=== PATIENT | female | born 1995 | race Caucasian/White ===

== ENCOUNTER 2017-01-04 18:06 | Emergency (ER) | payer OTHER ==
[2017-01-04] MEDS ORDERED: ACETAMINOPHEN 325 MG TAB As Ordered ONE (19:13)
--- NOTE | 2017-01-04 19:29 | REP ---
Clinical: Trauma . Comparison: None . Findings: The ventricles, sulci, and cisterns are normal in position and appearance. Hoyt-white differentiation is maintained. No acute intracranial hemorrhage, mass/mass effect, pathology or trauma/injury. No evidence for acute infarction. No extra-axial fluid collection. Calvarium is intact. Paranasal sinuses and mastoid air cells are clear. Impression: Normal noncontrast head CT. No evidence for acute intracranial pathology or trauma/injury. Signed by Giovanni Brown MD 01/04/2017 07:21 P
--- NOTE | 2017-01-04 19:30 | REP ---
Clinical: Trauma. Technique: Axial noncontrast images through the facial bones to include the mandible with coronal and sagittal re-formations. Findings: The osseous structures are intact and there is no evidence for fracture or dislocation. Specifically, the bilateral zygomatic arches, nasal bones, and mandible including bilateral temporomandibular joints appear normal and symmetric. The sinuses and mastoid air cells are all well aerated and clear without fluid level to suggest occult trauma. The bilateral orbits including the globes and intraconal contents appear symmetric and normal. The surrounding soft tissues are grossly unremarkable. Impression: Normal maxillofacial CT. No evidence for acute pathology or trauma/injury. Signed by Giovanni Brown MD 01/04/2017 07:22 P
--- NOTE | 2017-01-04 20:28 | EDDOCDS ---
Physician Documentation [facility] Name: Anand Huitron Age: 21 yrs Sex: Female : 1995 Arrival Date: 01/04/2017 Time: 18:06 Bed I1 Private MD: NO PRIMARY PHYSICIAN, . Disposition: 01/04/17 20:12 Discharged to Home/Self Care. Impression: Abrasion of unspecified part of head - Face, Superficial injury of head, Contusion of other part of head - Left side of face. - Condition is Stable. - Discharge Instructions: Contusion, Idgu-mu-Gkil, Abrasion, Anhf-lo-Caff, Head Injury, Adult, Juze-rj-Gvda. - Prescriptions for Ibuprofen 800 mg Oral Tablet - take 1 tablet by ORAL route every 8 hours As needed take with food; 30 tablet. ZOFRAN ODT 4 mg - dissolve 1 tablet by ORAL route 4 times per day As needed do not chew, do not swallow whole; 10 tablet. - Medication Reconciliation, Local Pharmacy Hours, Referral List Call for Appointment, Work Release Form - 2 day form. - [facility] ; When: 1 - 2 days; Reason: Recheck today's complaints, Continuance of care. Follow up: Emergency Department; Reason: Worsening of conditions. - Problem is new. - Symptoms have improved. Historical: - Allergies: PENICILLINS (Hives); - Home Meds: 1. Ortho-Novum (28) 0.5/0.75/1 mg- 35 mcg oral tab 1 tab once daily (Last dose: 01/04/2017 12:00) - PMHx: none; - PSHx: Tonsillectomy; Adenoidectomy; - Social history: Smoking status: Patient states was never smoker of tobacco. No barriers to communication noted, The patient speaks fluent French. - Family history: No immediate family members are acutely ill. - : The pt / caregiver states he / she is not on anticoagulants. Home medication list is obtained from the patient. - Exposure Risk Screening:: None identified. 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 0 in. (152.40 cm) (R); Pain 4/10; 20:25 BP 110 / 70; Pulse 79; Resp 18; Temp 99.0(O); Pulse Ox 97% on R/A; Pain 5/10; nn1 18:07 Body Mass Index 31.05 (72.12 kg, 152.40 cm) gr2 Visual Acuity: 19:23 Left Eye Visual acuity 20/25, ; Right Eye Visual acuity 20/20, ; Both Eyes Visual dsf acuity 20/20; With Lenses; MDM: 18:58 Financial registration complete. kf3 19:03 Ice Pack ordered. ef1 19:03 Acetaminophen Tablet 975 mg PO once ordered. ef1 19:04 Visual Acuity ordered. ef1 19:04 CT Maxilofacial W/out Contrast Ordered. EDMS 19:04 CT Head Without Contrast Ordered. EDMS 19:06 [facility] [place] Payment Agreement was scanned into [employer] and attached to record. kf3 Administered Medications: 19:23 Drug: Acetaminophen 975 mg [acetaminophen 325 mg tablet (3 tabs)] Route: PO; nn1 Signatures: Dispatcher [employer] EDMS Sydnie Millard RN RN kpj Shaq Mcgowan, Reg Reg kf3 Payton Marsh PA-C PANicole ef1 George Rivera,RN RN nn1 The chart was reviewed and I authenticate all verbal orders and agree with the evaluation and treatment provided.Attachments: 19:06 [facility] Payment Agreement kf3 MTDD
--- NOTE | 2017-01-04 20:28 | EDDOCDS ---
Nurse's Notes [facility] Name: Anand Huitron Age: 21 yrs Sex: Female : 1995 Arrival Date: 01/04/2017 Time: 18:06 Bed I1 Private MD: NO PRIMARY PHYSICIAN, . 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 denies loc happened at 1615. Mechanism of Injury: direct blow to outer aspect left eye .scientology area. The patient denies any loss of vision. Adult Sepsis Screening: The patient does not have new or worsening altered mentation. Patient's respiratory rate is less than 22. Systolic blood pressure is greater than 100. Patient has a qSOFA score of 0- Negative Sepsis Screen. Suicide/Homicide risk assessment- the patient denies having any suicidal and/or homicidal ideations and does not present with any other emotional, behavioral or mental health complaints. 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 Transition of care: patient was not received from another setting of care. 18:23 Acuity: VINICIO Level 4 [facility] 18:23 Method Of Arrival: Walkin/Carried/Asstd [facility] Triage Assessment: 18:27 General: Appears in no apparent distress, Behavior is appropriate for age. Pain: [facility] Location: left scientology Pain currently is 7 out of 10 on a pain scale. Pt Declines HIV testing. Neurological: Level of Consciousness is awake, alert, Oriented to person, place, time. EENT: raised bruised area left upper outer eyelid near scientology. Respiratory: Airway is patent Respiratory effort is even, unlabored. Derm: Skin is pink, warm & dry. 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 Ortho-Novum (28) 0.5/0.75/1 mg- 35 mcg oral tab 1 tab once daily (Last dose: 01/04/2017 12:00) - PMHx: none; - PSHx: Tonsillectomy; Adenoidectomy; - Social history: Smoking status: Patient states was never smoker of tobacco. No barriers to communication noted, The patient speaks fluent Egyptian. - Family history: No immediate family members are acutely ill. - : The pt / caregiver states he / she is not on anticoagulants. Home medication list is obtained from the patient. - Exposure Risk Screening:: None identified. Screenin:25 Screening information is obtained from the patient. Fall risk: No risks identified. nn1 Assistance ADL's: requires no assistance with activities of daily living. Abuse/DV Screen: The patient / caregiver reports he/she is: not in a situation that causes fear, pain or injury. Nutritional screening: No deficits noted. Advance Directives: Currently, there is no health care proxy. home support is adequate. Assessment: 19:23 General: Appears in no apparent distress, Behavior is appropriate for age, cooperative. nn1 Neurological: Level of Consciousness is awake, alert, obeys commands, Oriented to person, place, time. EENT: Eyes No foreign bodies or discharge noted. . Sclera/Cornea are clear in right eye and left eye Reports blurred vision in left eye Blurry vision and "seeing spots" in left eye following injury to left scientology earlier today. Bruising noted to left scientology. . Respiratory: Airway is patent Respiratory effort is even, unlabored, Respiratory pattern is regular, symmetrical. Derm: Skin is pink, warm & dry. 20:26 General: Appears in no apparent distress, comfortable, Behavior is appropriate for age, nn1 cooperative. Neurological: Level of Consciousness is awake, alert, obeys commands, Oriented to person, place, time. Respiratory: Airway is patent Respiratory effort is even, Respiratory pattern is regular. Derm: Skin is pink, warm & dry. Vital Signs: 18:07 BP 127 / 84; Pulse 97; Resp 18 S; Temp 98.5(O); Pulse Ox 97% on R/A; Weight 72.12 kg gr2 (R); Height 5 ft. 0 in. (152.40 cm) (R); Pain 4/10; 20:25 BP 110 / 70; Pulse 79; Resp 18; Temp 99.0(O); Pulse Ox 97% on R/A; Pain 5/10; nn1 18:07 Body Mass Index 31.05 (72.12 kg, 152.40 cm) gr2 Vitals: 18:07 Log In Time: January 04, 2017 at 18:07. gr2 Visual Acuity: 19:23 Left Eye Visual acuity 20/25, ; Right Eye Visual acuity 20/20, ; Both Eyes Visual dsf acuity 20/20; With Lenses; ED Course: 18:07 Patient visited by Eden Cobb. gr2 18:07 NO PRIMARY PHYSICIAN, . is Private Physician. gr2 18:07 Patient moved to Waiting gr2 18:09 Patient visited by Eden Cobb. gr2 18:10 Patient moved to Pre RCE gr2 18:26 Triage Initiated kpj 18:37 Patient moved to Triage 3 srm 18:52 Payton Marsh PA-C is PHCP. ef1 18:52 James Last MD is Attending Physician. ef1 18:52 Patient visited by Payton Marsh PA-C. ef1 19:06 Patient name changed from Anand\\S\\\\S\\Huitron\\S\\ to Anand\\S\\ \\S\\Huitron. EDMS 19:06 Patient moved to I10 23 rs6 19:06 [facility] Payment Agreement was scanned into [employer] and attached to record. kf3 19:23 Patient visited by Payton Marsh PA-C. ef1 19:44 Patient visited by Payton Marsh PA-C. ef1 19:44 CT Head Without Contrast Returned. EDMS 19:44 CT Maxilofacial W/out Contrast Returned. EDMS 20:12 Patient visited by Payton Marsh PA-C. ef1 20:12 [facility] is Referral Physician. ef1 20:23 Patient visited by Payton Marsh PA-C. ef1 20:25 Patient visited by George Rivera RN. nn1 20:27 The patient / caregiver is instructed regarding the plan of care and ED course. nn1 20:27 No IV's were initiated during this patient's visit. No procedures done that require nn1 assistance. Administered Medications: 19:23 Drug: Acetaminophen 975 mg [acetaminophen 325 mg tablet (3 tabs)] Route: PO; nn1 Order Results: Radiology Order: CT Maxilofacial W/out Contrast Test: CT Maxilofacial W/out Contrast REASON FOR EXAMINATION: Trauma; Clinical: Trauma.; ; Technique: Axial noncontrast images through the facial bones to include the; mandible with coronal and sagittal re-formations.; ; Findings:; The osseous structures are intact and there is no evidence for fracture or; dislocation. Specifically, the bilateral zygomatic arches, nasal bones, and; mandible including bilateral temporomandibular joints appear normal and; symmetric. The sinuses and mastoid air cells are all well aerated and clear; without fluid level to suggest occult trauma. The bilateral orbits including the; globes and intraconal contents appear symmetric and normal. The surrounding soft; tissues are grossly unremarkable.; ; Impression:; Normal maxillofacial CT.; No evidence for acute pathology or trauma/injury.; ; ; Signed by; Giovanni Brown MD 01/04/2017 07:22 P; Radiology Order: CT Head Without Contrast Test: CT Head Without Contrast REASON FOR EXAMINATION: Trauma; Clinical: Trauma .; ; Comparison: None .; ; Findings:; The ventricles, sulci, and cisterns are normal in position and appearance.; Hoyt-white differentiation is maintained. No acute intracranial hemorrhage,; mass/mass effect, pathology or trauma/injury. No evidence for acute infarction.; No extra-axial fluid collection. Calvarium is intact. Paranasal sinuses and; mastoid air cells are clear.; ; Impression:; Normal noncontrast head CT.; No evidence for acute intracranial pathology or trauma/injury.; ; ; Signed by; Giovanni Brown MD 01/04/2017 07:21 P; Outcome: 20:12 Discharge ordered by Provider. ef1 20:26 Discharge Assessment: Patient awake, alert and oriented x 3. No cognitive and/or nn1 functional deficits noted. Patient verbalized understanding of disposition instructions. patient administered narcotics - no. The following High Risk Discharge criteria are identified: None. Discharged to home ambulatory. Condition: stable. Prescriptions given X 2, Work note provided to patient. CT Study completed. Property :Personal belongings accompany Pt. 20:27 Patient left the ED. nn1 Signatures: Dispatcher [employer] EDMS Sydnie Millard RN RN kpj Michelson, Staci, RN RN srm Fiddler, Shaq, Reg Reg kf3 Payton Marsh, PA-C PA-C ef1 Domenica Brown RN RN dsf Raymond, Gainslee gr2 Brenda, Alice, INSTRUCTIONAL DESIGNER INSTRUCTIONAL DESIGNER rs6 George Rivera,RN RN nn1 CJD
--- NOTE | 2017-01-06 21:28 | EDDOCDS ---
Physician Documentation [facility] Name: Anadn Huitron Age: 21 yrs Sex: Female : 1995 Arrival Date: 01/04/2017 Time: 18:06 Bed I1 Private MD: NO PRIMARY PHYSICIAN, . Disposition: 01/04/17 20:12 Discharged to Home/Self Care. Impression: Abrasion of unspecified part of head - Face, Superficial injury of head, Contusion of other part of head - Left side of face. - Condition is Stable. - Discharge Instructions: Contusion, Saph-ir-Wsed, Abrasion, Nqpq-ya-Ouin, Head Injury, Adult, Ggrt-ua-Tmxi. - Prescriptions for Ibuprofen 800 mg Oral Tablet - take 1 tablet by ORAL route every 8 hours As needed take with food; 30 tablet. ZOFRAN ODT 4 mg - dissolve 1 tablet by ORAL route 4 times per day As needed do not chew, do not swallow whole; 10 tablet. - Medication Reconciliation, Local Pharmacy Hours, Referral List Call for Appointment, Work Release Form - 2 day form. - [facility] ; When: 1 - 2 days; Reason: Recheck today's complaints, Continuance of care. Follow up: Emergency Department; Reason: Worsening of conditions. - Problem is new. - Symptoms have improved. Historical: - Allergies: PENICILLINS (Hives); - Home Meds: 1. Ortho-Novum (28) 0.5/0.75/1 mg- 35 mcg oral tab 1 tab once daily (Last dose: 01/04/2017 12:00) - PMHx: none; - PSHx: Tonsillectomy; Adenoidectomy; - Social history: Smoking status: Patient states was never smoker of tobacco. No barriers to communication noted, The patient speaks fluent Armenian. - Family history: No immediate family members are acutely ill. - : The pt / caregiver states he / she is not on anticoagulants. Home medication list is obtained from the patient. - Exposure Risk Screening:: None identified. 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 0 in. (152.40 cm) (R); Pain 4/10; 20:25 BP 110 / 70; Pulse 79; Resp 18; Temp 99.0(O); Pulse Ox 97% on R/A; Pain 5/10; nn1 18:07 Body Mass Index 31.05 (72.12 kg, 152.40 cm) gr2 Visual Acuity: 19:23 Left Eye Visual acuity 20/25, ; Right Eye Visual acuity 20/20, ; Both Eyes Visual dsf acuity 20/20; With Lenses; MDM: 18:58 Financial registration complete. kf3 19:03 Ice Pack ordered. ef1 19:03 Acetaminophen Tablet 975 mg PO once ordered. ef1 19:04 Visual Acuity ordered. ef1 19:04 CT Maxilofacial W/out Contrast Ordered. EDMS 19:04 CT Head Without Contrast Ordered. EDMS 19:06 [facility] [place] Agreement was scanned into [employer] and attached to record. kf3 01/05 17:40 T-Sheet-- Draft Copy was scanned into [employer] and attached to record. klr 01/06 20:01 Radiology Report was scanned into [employer] and attached to record. klr Administered Medications: 01/04 19:23 Drug: Acetaminophen 975 mg [acetaminophen 325 mg tablet (3 tabs)] Route: PO; nn1 Signatures: Dispatcher [employer] EDVA Sydnie Millard RN RN kpj Fiddler, Kris, Reg Reg kf3 Payton Marsh PA-C PA-C ef1 George Rivera RN RN nn1 Caryn Hobbs klr The chart was reviewed and I authenticate all verbal orders and agree with the evaluation and treatment provided.Attachments: 19:06 [facility] Payment Agreement kf3 01/05 17:40 T-Sheet-- Draft Copy klr Chart Complete MTDD
--- NOTE | 2017-01-06 21:28 | EDDOCDS ---
Physician Documentation [facility] Name: Anand Huitron Age: 21 yrs Sex: Female : 1995 Arrival Date: 01/04/2017 Time: 18:06 Bed I1 Private MD: NO PRIMARY PHYSICIAN, . Disposition: 01/04/17 20:12 Discharged to Home/Self Care. Impression: Abrasion of unspecified part of head - Face, Superficial injury of head, Contusion of other part of head - Left side of face. - Condition is Stable. - Discharge Instructions: Contusion, Bgvo-lw-Hmft, Abrasion, Xzkv-qz-Kapu, Head Injury, Adult, Puyi-uf-Rxjp. - Prescriptions for Ibuprofen 800 mg Oral Tablet - take 1 tablet by ORAL route every 8 hours As needed take with food; 30 tablet. ZOFRAN ODT 4 mg - dissolve 1 tablet by ORAL route 4 times per day As needed do not chew, do not swallow whole; 10 tablet. - Medication Reconciliation, Local Pharmacy Hours, Referral List Call for Appointment, Work Release Form - 2 day form. - [facility] ; When: 1 - 2 days; Reason: Recheck today's complaints, Continuance of care. Follow up: Emergency Department; Reason: Worsening of conditions. - Problem is new. - Symptoms have improved. Historical: - Allergies: PENICILLINS (Hives); - Home Meds: 1. Ortho-Novum (28) 0.5/0.75/1 mg- 35 mcg oral tab 1 tab once daily (Last dose: 01/04/2017 12:00) - PMHx: none; - PSHx: Tonsillectomy; Adenoidectomy; - Social history: Smoking status: Patient states was never smoker of tobacco. No barriers to communication noted, The patient speaks fluent Greenlandic. - Family history: No immediate family members are acutely ill. - : The pt / caregiver states he / she is not on anticoagulants. Home medication list is obtained from the patient. - Exposure Risk Screening:: None identified. 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 0 in. (152.40 cm) (R); Pain 4/10; 20:25 BP 110 / 70; Pulse 79; Resp 18; Temp 99.0(O); Pulse Ox 97% on R/A; Pain 5/10; nn1 18:07 Body Mass Index 31.05 (72.12 kg, 152.40 cm) gr2 Visual Acuity: 19:23 Left Eye Visual acuity 20/25, ; Right Eye Visual acuity 20/20, ; Both Eyes Visual dsf acuity 20/20; With Lenses; MDM: 18:58 Financial registration complete. kf3 19:03 Ice Pack ordered. ef1 19:03 Acetaminophen Tablet 975 mg PO once ordered. ef1 19:04 Visual Acuity ordered. ef1 19:04 CT Maxilofacial W/out Contrast Ordered. EDMS 19:04 CT Head Without Contrast Ordered. EDMS 19:06 [facility] [place] Payment Agreement was scanned into [employer] and attached to record. kf3 01/05 17:40 T-Sheet-- Draft Copy was scanned into [employer] and attached to record. klr 01/06 20:01 Radiology Report was scanned into [employer] and attached to record. klr Administered Medications: 01/04 19:23 Drug: Acetaminophen 975 mg [acetaminophen 325 mg tablet (3 tabs)] Route: PO; nn1 Signatures: Dispatcher [employer] EDAZ Sydnie Millard RN RN kpj Fiddler, Kris, Reg Reg kf3 Payton Marsh PA-C PA-C ef1 George Rivera RN RN nn1 Caryn Hobbs klr The chart was reviewed and I authenticate all verbal orders and agree with the evaluation and treatment provided.Attachments: 19:06 [facility] Payment Agreement kf3 01/05 17:40 T-Sheet-- Draft Copy klr Chart Complete MTDD
--- NOTE | 2017-01-06 21:28 | EDDOCDS ---
Nurse's Notes [facility] Name: Anand Huitron Age: 21 yrs Sex: Female : 1995 Arrival Date: 01/04/2017 Time: 18:06 Bed I1 Private MD: NO PRIMARY PHYSICIAN, . 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 denies loc happened at 1615. Mechanism of Injury: direct blow to outer aspect left eye .protestant area. The patient denies any loss of vision. Adult Sepsis Screening: The patient does not have new or worsening altered mentation. Patient's respiratory rate is less than 22. Systolic blood pressure is greater than 100. Patient has a qSOFA score of 0- Negative Sepsis Screen. Suicide/Homicide risk assessment- the patient denies having any suicidal and/or homicidal ideations and does not present with any other emotional, behavioral or mental health complaints. 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 Transition of care: patient was not received from another setting of care. 18:23 Acuity: VINICIO Level 4 [facility] 18:23 Method Of Arrival: Walkin/Carried/Asstd [facility] Triage Assessment: 18:27 General: Appears in no apparent distress, Behavior is appropriate for age. Pain: [facility] Location: left protestant Pain currently is 7 out of 10 on a pain scale. Pt Declines HIV testing. Neurological: Level of Consciousness is awake, alert, Oriented to person, place, time. EENT: raised bruised area left upper outer eyelid near protestant. Respiratory: Airway is patent Respiratory effort is even, unlabored. Derm: Skin is pink, warm & dry. 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 Ortho-Novum (28) 0.5/0.75/1 mg- 35 mcg oral tab 1 tab once daily (Last dose: 01/04/2017 12:00) - PMHx: none; - PSHx: Tonsillectomy; Adenoidectomy; - Social history: Smoking status: Patient states was never smoker of tobacco. No barriers to communication noted, The patient speaks fluent Colombian. - Family history: No immediate family members are acutely ill. - : The pt / caregiver states he / she is not on anticoagulants. Home medication list is obtained from the patient. - Exposure Risk Screening:: None identified. Screenin:25 Screening information is obtained from the patient. Fall risk: No risks identified. nn1 Assistance ADL's: requires no assistance with activities of daily living. Abuse/DV Screen: The patient / caregiver reports he/she is: not in a situation that causes fear, pain or injury. Nutritional screening: No deficits noted. Advance Directives: Currently, there is no health care proxy. home support is adequate. Assessment: 19:23 General: Appears in no apparent distress, Behavior is appropriate for age, cooperative. nn1 Neurological: Level of Consciousness is awake, alert, obeys commands, Oriented to person, place, time. EENT: Eyes No foreign bodies or discharge noted. . Sclera/Cornea are clear in right eye and left eye Reports blurred vision in left eye Blurry vision and "seeing spots" in left eye following injury to left protestant earlier today. Bruising noted to left protestant. . Respiratory: Airway is patent Respiratory effort is even, unlabored, Respiratory pattern is regular, symmetrical. Derm: Skin is pink, warm & dry. 20:26 General: Appears in no apparent distress, comfortable, Behavior is appropriate for age, nn1 cooperative. Neurological: Level of Consciousness is awake, alert, obeys commands, Oriented to person, place, time. Respiratory: Airway is patent Respiratory effort is even, Respiratory pattern is regular. Derm: Skin is pink, warm & dry. Vital Signs: 18:07 BP 127 / 84; Pulse 97; Resp 18 S; Temp 98.5(O); Pulse Ox 97% on R/A; Weight 72.12 kg gr2 (R); Height 5 ft. 0 in. (152.40 cm) (R); Pain 4/10; 20:25 BP 110 / 70; Pulse 79; Resp 18; Temp 99.0(O); Pulse Ox 97% on R/A; Pain 5/10; nn1 18:07 Body Mass Index 31.05 (72.12 kg, 152.40 cm) gr2 Vitals: 18:07 Log In Time: January 04, 2017 at 18:07. gr2 Visual Acuity: 19:23 Left Eye Visual acuity 20/25, ; Right Eye Visual acuity 20/20, ; Both Eyes Visual dsf acuity 20/20; With Lenses; ED Course: 18:07 Patient visited by Eden Cobb. gr2 18:07 NO PRIMARY PHYSICIAN, . is Private Physician. gr2 18:07 Patient moved to Waiting gr2 18:09 Patient visited by Eden Cobb. gr2 18:10 Patient moved to Pre RCE gr2 18:26 Triage Initiated kpj 18:37 Patient moved to Triage 3 srm 18:52 Payton Marsh PA-C is PHCP. ef1 18:52 James Last MD is Attending Physician. ef1 18:52 Patient visited by Payton Marsh PA-C. ef1 19:06 Patient name changed from Anand\\S\\\\S\\Huitron\\S\\ to Anadn\\S\\ \\S\\Huitron. EDMS 19:06 Patient moved to I10 23 rs6 19:06 [facility] Payment Agreement was scanned into [employer] and attached to record. kf3 19:23 Patient visited by Payton Marsh PA-C. ef1 19:44 Patient visited by Payton Marsh PA-C. ef1 19:44 CT Head Without Contrast Returned. EDMS 19:44 CT Maxilofacial W/out Contrast Returned. EDMS 20:12 Patient visited by Payton Marsh PA-C. ef1 20:12 [facility] is Referral Physician. ef1 20:23 Patient visited by Payton Marsh PA-C. ef1 20:25 Patient visited by George Rivera RN. nn1 20:27 The patient / caregiver is instructed regarding the plan of care and ED course. nn1 20:27 No IV's were initiated during this patient's visit. No procedures done that require nn1 assistance. 01/05 17:40 T-Sheet-- Draft Copy was scanned into [employer] and attached to record. klr 01/06 20:01 Radiology Report was scanned into [employer] and attached to record. klr Administered Medications: 01/04 19:23 Drug: Acetaminophen 975 mg [acetaminophen 325 mg tablet (3 tabs)] Route: PO; nn1 Order Results: Radiology Order: CT Maxilofacial W/out Contrast Test: CT Maxilofacial W/out Contrast REASON FOR EXAMINATION: Trauma; Clinical: Trauma.; ; Technique: Axial noncontrast images through the facial bones to include the; mandible with coronal and sagittal re-formations.; ; Findings:; The osseous structures are intact and there is no evidence for fracture or; dislocation. Specifically, the bilateral zygomatic arches, nasal bones, and; mandible including bilateral temporomandibular joints appear normal and; symmetric. The sinuses and mastoid air cells are all well aerated and clear; without fluid level to suggest occult trauma. The bilateral orbits including the; globes and intraconal contents appear symmetric and normal. The surrounding soft; tissues are grossly unremarkable.; ; Impression:; Normal maxillofacial CT.; No evidence for acute pathology or trauma/injury.; ; ; Signed by; Giovanni Brown MD 01/04/2017 07:22 P; Radiology Order: CT Head Without Contrast Test: CT Head Without Contrast REASON FOR EXAMINATION: Trauma; Clinical: Trauma .; ; Comparison: None .; ; Findings:; The ventricles, sulci, and cisterns are normal in position and appearance.; Hoyt-white differentiation is maintained. No acute intracranial hemorrhage,; mass/mass effect, pathology or trauma/injury. No evidence for acute infarction.; No extra-axial fluid collection. Calvarium is intact. Paranasal sinuses and; mastoid air cells are clear.; ; Impression:; Normal noncontrast head CT.; No evidence for acute intracranial pathology or trauma/injury.; ; ; Signed by; Giovanni Brown MD 01/04/2017 07:21 P; Outcome: 20:12 Discharge ordered by Provider. ef1 20:26 Discharge Assessment: Patient awake, alert and oriented x 3. No cognitive and/or nn1 functional deficits noted. Patient verbalized understanding of disposition instructions. patient administered narcotics - no. The following High Risk Discharge criteria are identified: None. Discharged to home ambulatory. Condition: stable. Prescriptions given X 2, Work note provided to patient. CT Study completed. Property :Personal belongings accompany Pt. 20:27 Patient left the ED. nn1 Signatures: Dispatcher [employer] EDSydnie West RN RN kpj Tamara, Ashley, RN RN srm Fiddler, Shaq, Reg Reg kf3 Salma, Payton, PA-C PA-C ef1 Domenica Brown,RN RN dsf Eden Cobb gr2 Brenda, Alice, PIT AND AUXILIARIES SUPERVISOR PIT AND AUXILIARIES SUPERVISOR rs6 Miguel,George,RN RN nn1 Caryn Hobbs Chart Complete MTDD
== END 2017-01-04 20:27 | disposition home or self-care (01) ==
LOC: M ED 18:06
DX: S00.83XA Contusion of other part of head, initial encounter (principal); W22.8XXA Striking against or struck by other objects, initial encounter; Y92.89 Other specified places as the place of occurrence of the external cause; Y93.89 Activity, other specified; Y99.0 Civilian activity done for income or pay; G89.11 Acute pain due to trauma; Z90.89 Acquired absence of other organs; Z79.3 Long term (current) use of hormonal contraceptives; Z88.0 Allergy status to penicillin

== ENCOUNTER → 2017-04-04 | Outpatient (CLI) | payer BC, OTHER ==
--- NOTE | 2017-04-04 18:32 | REP ---
LEFT WRIST: HISTORY: Pain after trauma. COMPARISON: None. FINDINGS: No acute fracture or destructive osseous lesion. Signed by Skinny Brown DO 04/04/2017 06:53 P
== END ==
LOC: M WUC 17:41
PROVIDERS: ATTEND Physician Assistant
DX: M25.532 Pain in left wrist (principal)

== ENCOUNTER → 2017-05-31 | Outpatient (REF) | payer OTHER | LOC: M LAB REF 19:41 | PROVIDERS: ATTEND Physician Assistant | DX: J02.9 Acute pharyngitis, unspecified (principal) ==